=== PATIENT | male | born 1935 | race Caucasian/White ===

== ENCOUNTER 2021-11-01 06:25 | Day surgery (SDC) | payer MEDICARE, MEDICAID ==
[2021-10-31 14:30] LABS: BASOPHILS % (AUTO) 0.4 % (0-1); EOSINOPHILS # (AUTO) 0.1 X10'3 (0-0.9); EOSINOPHILS % (AUTO) 1.4 % (0-6); HEMATOCRIT 32.2 % (42.0-52.0); HEMOGLOBIN 10.7 g/dl (14.0-17.9); LYMPHOCYTES # (AUTO) 0.7 X10'3 (1.1-4.8); LYMPHOCYTES % (AUTO) 8.2 % (21-51); MEAN CORPUSCULAR HEMOGLOBIN 29.4 PG (27.0-31.0); MEAN CORPUSCULAR VOLUME 88.9 FL (78-98); MEAN PLATELET VOLUME 7.2 FL (7.4-10.4); MONOCYTES % (AUTO) 12.5 % (2-12); NEUTROPHILS # (AUTO) 6.4 X10'3 (1.8-7.7); NEUTROPHILS % (AUTO) 77.5 % (42-75); PLATELET COUNT 252 X10'3 (140-440); RED BLOOD COUNT 3.63 X10'6 (4.70-6.10); RED CELL DISTRIBUTION WIDTH 17.2 % (11.5-14.5); WHITE BLOOD COUNT 8.3 X10'3 (4.5-11.0)
[2021-10-31 14:36] LABS: ALBUMIN 2.7 G/DL (3.4-5.0); ANION GAP 6 (8-16); BLOOD UREA NITROGEN 25 MG/DL (7-18); BUN/CREATININE RATIO 19.5 (5.4-32.0); CALCIUM 8.4 MG/DL (8.5-10.1); CHLORIDE 104 MMOL/L (99-107); CREATININE 1.28 MG/DL (0.60-1.10); GLUCOSE 106 MG/DL (70-104); POTASSIUM 4.4 MMOL/L (3.5-5.1); SODIUM 137 MMOL/L (135-145); TOTAL CARBON DIOXIDE 27.2 MMOL/L (24-32); eGFR 53 ML/MIN
[2021-10-31 14:58] LABS: APTT 27 SECONDS (22-32)
[~2021-11-01] VITALS: Ht 149.9 cm; Wt 82.6 kg
[2021-11-01] VITALS (9 sets, daily range): BP systolic 91–104; BP diastolic 59–68
[~2021-11-01 06:25] MED LIST: ACYC200C30 PO; ALBU18HF2 INH; ASCO500C18 PO; ASPI-1264 PO; DIPH25CA83 PO; DULO60CA65 PO; FLAX100031 PO; FLUT1AER INH; FURO20TA4 PO; GEMF600T89 PO; HYDR-4353 PO; LEVO100T9 PO; LORA0.5T PO; METO-395 PO; MORP-92 PO; MULT-1085 PO; OMEP40CA21 PO; POTA10TA15 PO; TERA5CAP4 PO
[2021-11-01] MEDS ORDERED: ALEN70TA80 PO (07:03)
[2021-11-01] MEDS ORDERED: WARF3TAB56 PO (07:03)
[2021-11-01] MEDS ORDERED: ASCO500C17 PO (07:03)
[2021-11-01] MEDS ORDERED: OXYC1TAB17 PO (07:03)
[2021-11-01] MEDS ORDERED: Hytrin PO (07:03)
[2021-11-01] MEDS ORDERED: CELE100C98 PO (07:03)
[2021-11-01] MEDS ORDERED: CARV-50 PO (07:03)
[2021-11-01] MEDS ORDERED: FERR134T2 PO (07:03)
[2021-11-01] MEDS ORDERED: fentaNYL/PF 50MCG/1 ML 2ML syringe ONE (07:30)
[2021-11-01] MEDS ORDERED: midazolam 1 mg/ML 2ml injection ONE (07:30)
[2021-11-01] MEDS ORDERED: nitroGLYCERIN-Tridil 50MG/D5W 250 ML IV ONE (07:30)
[2021-11-01] MEDS ORDERED: LIDOcaine 1% 30ml preserv. free vial ONE (07:30)
[2021-11-01] MEDS ORDERED: verapamil 2.5 mg/ml inj IV ONE (07:30)
[2021-11-01] MEDS ORDERED: heparin 1,000unit/ml 10ml vial 10 ML ONE (07:30)
[2021-11-01] MEDS ORDERED: iohexol 350MG/ML 100ml bottle IV ONE (07:31)
[2021-11-01] MEDS ORDERED: iohexol 350 MG/ML 50ML vial IV ONE (08:42)
== END 2021-11-01 13:15 | disposition home or self-care (01) ==
LOC: SSTAY O 06:25
PROVIDERS: ATTEND Internal Medicine Cardiovascular Disease
DX: R06.02 Shortness of breath (principal); R53.83 Other fatigue; I25.10 Atherosclerotic heart disease of native coronary artery without angina pectoris; I10 Essential (primary) hypertension; I48.0 Paroxysmal atrial fibrillation; I42.0 Dilated cardiomyopathy; G47.33 Obstructive sleep apnea (adult) (pediatric); J44.9 Chronic obstructive pulmonary disease, unspecified; E78.49 Other hyperlipidemia; G62.9 Polyneuropathy, unspecified; F17.290 Nicotine dependence, other tobacco product, uncomplicated; Z88.2 Allergy status to sulfonamides; Z88.0 Allergy status to penicillin; Z88.5 Allergy status to narcotic agent; Z88.1 Allergy status to other antibiotic agents; Z79.899 Other long term (current) drug therapy; Z95.0 Presence of cardiac pacemaker; Z86.73 Personal history of transient ischemic attack (TIA), and cerebral infarction without residual deficits; Z85.828 Personal history of other malignant neoplasm of skin; Z96.611 Presence of right artificial shoulder joint; Z90.49 Acquired absence of other specified parts of digestive tract; Z98.890 Other specified postprocedural states; Z96.649 Presence of unspecified artificial hip joint; Z72.89 Other problems related to lifestyle
CPT/HCPCS: 36415; 76937; 80048; 85025; 85610; 85730; 93005; 93458; 99152; 99153; C1769; C1894; J1644; J2250; J3010; J3490; J7030; Q9967; A4620; A5120; A6258; A6402